=== PATIENT | male | born 2000 | race Caucasian/White ===

== ENCOUNTER 2023-02-21 16:40 | Inpatient (IN) | payer OTHER ==
--- NOTE | 2023-02-21 17:08 | ED ---
Recheck HPI - General Chief Complaint: Shortness of Breath Stated Complaint: IMER Time Seen by Provider: 02/21/23 17:08 Source: patient, RN notes reviewed, old records reviewed, Caregiver Mode of arrival: ambulatory Limitations: no limitations - History of Present Illness Initial Comments: This is a 22-year-old male to the emergency department for evaluation patient resents today for evaluation of chest pain nontraumatic in nature. Patient did have outpatient x-ray allegedly showing pneumothorax of the left lung. Patient states his symptoms began when he was taking the dog and he then felt felt sharp pain in his chest. This been going on for about a day with some shortness of breath as well MD Complaint: other (Patient has pneumothorax. History) Returns Today for: persistent/worsening pain related to initial visit Symptoms Since Prior Visit: worsening pain Associated Symptoms: chest pain, shortness of breath Treatments Prior to Arrival: other (0) - Related Data Home Medications Medication Instructions Recorded Confirmed No Known Home Medications 02/21/23 02/21/23 Allergies Allergy/AdvReac Type Severity Reaction Status Date / Time No Known Allergies Allergy Verified 02/21/23 17:47 Review of Systems ROS Statement: Those systems with pertinent positive or pertinent negative responses have been documented in the HPI. ROS Other: All systems not noted in ROS Statement are negative. Past Medical History Additional Past Medical History / Comment(s): pneumothrorax History of Any Multi-Drug Resistant Organisms: None Reported Past Surgical History: Ear Surgery Past Psychological History: No Psychological Hx Reported Smoking Status: Vaper Past Alcohol Use History: None Reported Past Drug Use History: Marijuana General Exam Limitations: no limitations General appearance: alert, in no apparent distress, anxious Head exam: Present: atraumatic, normocephalic, normal inspection Eye exam: Present: normal appearance, PERRL, EOMI. Absent: scleral icterus, conjunctival injection, periorbital swelling ENT exam: Present: normal exam, mucous membranes moist Neck exam: Present: normal inspection. Absent: tenderness, meningismus, lymphadenopathy Respiratory exam: Present: decreased breath sounds (No breath sounds on the left). Absent: respiratory distress, wheezes, rales, rhonchi, stridor Cardiovascular Exam: Present: regular rate, normal rhythm, normal heart sounds. Absent: systolic murmur, diastolic murmur, rubs, gallop, clicks GI/Abdominal exam: Present: soft, normal bowel sounds. Absent: distended, tenderness, guarding, rebound, rigid Extremities exam: Present: normal inspection, full ROM, normal capillary refill. Absent: tenderness, pedal edema, joint swelling, calf tenderness Back exam: Present: normal inspection Neurological exam: Present: alert, oriented X3, CN II-XII intact Psychiatric exam: Present: normal affect, normal mood Skin exam: Present: warm, dry, intact, normal color. Absent: rash Course Vital Signs 02/21/23 02/21/23 02/21/23 16:59 17:39 19:27 Temperature 98.0 F Pulse Rate 79 76 82 Respiratory 20 20 18 Rate Blood Pressure 127/61 113/90 132/95 O2 Sat by Pulse 93 L 98 100 Oximetry - Reevaluation(s) Reevaluation #1: 02/21/23 17:13 Medical record is reviewed Reevaluation #2: 02/21/23 17:13 Patient symptoms are improved Reevaluation #3: 02/21/23 17:13 Patient informed results and questions answered Reevaluation #4: 02/21/23 17:13 Was pt. sent in by a medical professional or institution? @ -no Did you speak to anyone other than the patient for history? @ -no Did you review nursing and triage notes? @ -agree Were old charts reviewed? @ -no Differential Diagnosis? @ -prior EKG interpreted by me (3pts min.)? @ -yes X-rays interpreted by me (1pt min.)? @ -yes CT interpreted by me (1pt min.)? @ -no U/S interpreted by me (1pt. min.)? @ -no What testing was considered but not performed? (CT, X-rays, U/S, labs)? Why? @ -no What meds were considered but not given? Why? @ -no Did you discuss the management of the patient with other professionals? @ -no Did you reconcile home meds? @ -no Was smoking cessation discussed for >3mins.? @ -no Was critical care preformed (if so, how long)? @ -no Were there social determinants of health that impacted care today? How? (Homelessness, low income, unemployed, alcoholism, drug addiction, transportation, low edu. Level, literacy, decrease access to med. care, longterm, rehab)? @ -no Was there de-escalation of care discussed even if they declined? (Discuss DNR or withdrawal of care, Hospice)? @ -no What co-morbidities impacted this encounter? (DM, HTN, Smoking, COPD, CAD, Cancer, CVA, Hep., AIDS, mental health diagnosis, sleep apnea, morbid obesity)? @ -none Was patient admitted / discharged? @ -22 mailed ER with spontaneous left-sided pneumothorax treated with poor event, chest tube. Patient will be admitted for monitoring Admitted Undiagnosed new problem with uncertain prognosis? @ -no Drug Therapy requiring intensive monitoring for toxicity (Heparin, Nitro, Insulin, Cardizem)? @ -no Were any procedures done? @ -no Diagnosis/symptom? @ -Spontaneous pneumothorax left Acute, or Chronic, or Acute on Chronic? @ -no Uncomplicated (without systemic symptoms) or Complicated (systemic symptoms)? @ -uncomplicated Side effects of treatment? @ -no Exacerbation, Progression, or Severe Exacerbation] @ -no Poses a threat to life or bodily function? @ -Yes was cardiovascular collapse and hypoxia Reevaluation #5: 02/21/23 17:13 Differential Chest Pain: Stable Angina, Unstable Angina, STEMI, NSTEMI Aortic Dissection, Pneumothorax, Musculoskeletal, Esophageal Spasm GERD, Cholecystitis, Pancreatitis, Zoster, this is not meant to be an all-inclusive list. - Consultations Consultation #1: Spoke with sound who agrees to admit the patient Procedures - Chest Tube Insertion Consent Obtained: verbal consent Side of Procedure: left Indication: Pneumothorax (Spontaneous) Placed on monitor/pulse oximetry: Yes Site Prep: Povidone-Iodine Local Anesthesia: Lidocaine 2%, With Epi Insertion Site: Midaxillary Scalpel: #11 Returns: Air Sutured in Place: No (Tape, Darvocet) Attached to Suction: Yes (After initial x-ray showed improvement, to suction showing 100%) Type of Suction: Air Repeat X-ray Results: Lung Inflated Patient Tolerated Procedure: well Complications: Other (None) Medical Decision Making - Medical Decision Making 22 male DF for evaluation spontaneous left-sided pneumothorax improve with or event. Patient feels improved will admit for monitoring - Lab Data Result diagrams: 02/21/23 17:47 02/21/23 17:47 Lab Results 02/21/23 02/21/23 02/21/23 Range/Units 17:47 17:47 17:47 WBC 8.9 (4.0-11.0) k/uL RBC 5.37 (4.30-5.90) m/uL Hgb 16.8 (13.0-17.5) gm/dL Hct 49.3 (39.0-53.0) % MCV 91.7 (80.0-100.0) fL MCH 31.3 (25.0-35.0) pg MCHC 34.2 (31.0-37.0) g/dL RDW 11.9 (11.5-15.5) % Plt Count 263 (150-450) k/uL MPV 7.8 Neutrophils % 75 % Lymphocytes % 17 % Monocytes % 6 % Eosinophils % 0 % Basophils % 0 % Neutrophils # 6.7 (1.3-7.7) k/uL Lymphocytes # 1.5 (1.0-4.8) k/uL Monocytes # 0.5 (0-1.0) k/uL Eosinophils # 0.0 (0-0.7) k/uL Basophils # 0.0 (0-0.2) k/uL PT 11.1 (9.0-12.0) sec INR 1.1 (<1.2) APTT 25.3 (22.0-30.0) sec Sodium 141 (137-145) mmol/L Potassium 4.1 (3.5-5.1) mmol/L Chloride 102 (98-107) mmol/L Carbon Dioxide 23 (22-30) mmol/L Anion Gap 16 mmol/L BUN 11 (9-20) mg/dL Creatinine 0.97 (0.66-1.25) mg/dL Est GFR (CKD-EPI)AfAm >90 (>60 ml/min/1.73 sqM) Est GFR (CKD-EPI)NonAf >90 (>60 ml/min/1.73 sqM) Glucose 81 (74-99) mg/dL Calcium 10.6 H (8.4-10.2) mg/dL Phosphorus 2.9 (2.5-4.5) mg/dL Magnesium 2.1 (1.6-2.3) mg/dL Total Bilirubin 1.1 (0.2-1.3) mg/dL AST 28 (17-59) U/L ALT 20 (4-49) U/L Alkaline Phosphatase 92 (38-126) U/L Total Protein 8.8 H (6.3-8.2) g/dL Albumin 5.5 H (3.5-5.0) g/dL - Radiology Data Radiology results: report reviewed (Chest x-ray initially shows significant pneumothorax, repeat shows positive treatment and chest tube for event), image reviewed Disposition Clinical Impression: Acute pneumothorax, Chest pain, Spontaneous pneumothorax Disposition: ADMITTED IP TO THIS [facility] Condition: Good Is patient prescribed a controlled substance at d/c from ED?: No Referrals: Bj Abdalla DO [Primary Care Provider] - 1-2 days Time of Disposition: 20:00
--- NOTE | 2023-02-21 17:35 | XR ---
EXAMINATION TYPE: XR chest 1V portable DATE OF EXAM: 02/21/2023 5:17 PM COMPARISON: Chest radiographs from 02/21/2023. TECHNIQUE: XR chest 1V portable Frontal view of the chest. CLINICAL INDICATION:Male, 22 years old with history of cp; FINDINGS: Lungs/Pleura: There is a large left pneumothorax with associated atelectasis. Thank similar to radiog raph from 2 hours earlier. Pulmonary vascularity: Unremarkable. Heart/mediastinum: Cardiomediastinal silhouette is unremarkable. Musculoskeletal: No acute osseous pathology. IMPRESSION: Large left pneumothorax similar to prior from 2 hours earlier.
[2023-02-21] MEDS ORDERED: SODIUM CHLORIDE 0.9% 1,000 ML IV STA (17:45)
[2023-02-21 18:06] LABS: Basophils % (A) 0 %; Eosinophils % (A) 0 %; HCT 49.3 % (39.0-53.0); HGB 16.8 gm/dL (13.0-17.5); Lymphocytes # (A) 1.5 k/uL (1.0-4.8); Lymphocytes % (A) 17 %; MCH 31.3 pg (25.0-35.0); MCHC 34.2 g/dL (31.0-37.0); MCV 91.7 fL (80.0-100.0); Mean Platelet Volume 7.8; Monocytes # (A) 0.5 k/uL (0-1.0); Monocytes % (A) 6 %; Neutrophils # (A) 6.7 k/uL (1.3-7.7); Neutrophils % (A) 75 %; Platelet Count 263 k/uL (150-450); RBC 5.37 m/uL (4.30-5.90); RDW 11.9 % (11.5-15.5); WBC 8.9 k/uL (4.0-11.0)
[2023-02-21 18:11] LABS: INR 1.1 (<1.2); Partial Thromboplastin Time 25.3 sec (22.0-30.0); Prothrombin Time 11.1 sec (9.0-12.0)
[2023-02-21 18:17] LABS: ALT 20 U/L (4-49); AST 28 U/L (17-59); African American GFR (CKD) >90 (>60 ml/min/1.73 sqM); Albumin 5.5 g/dL (3.5-5.0); Alkaline Phosphatase 92 U/L (38-126); Anion Gap 16 mmol/L; Blood Urea Nitrogen 11 mg/dL (9-20); Calcium 10.6 mg/dL (8.4-10.2); Carbon Dioxide 23 mmol/L (22-30); Chloride 102 mmol/L (98-107); Glucose 81 mg/dL (74-99); Magnesium 2.1 mg/dL (1.6-2.3); Non-African American GFR(CKD) >90 (>60 ml/min/1.73 sqM); Phosphorus 2.9 mg/dL (2.5-4.5); Potassium 4.1 mmol/L (3.5-5.1); Sodium 141 mmol/L (137-145); Total Bilirubin 1.1 mg/dL (0.2-1.3); Total Protein 8.8 g/dL (6.3-8.2)
--- NOTE | 2023-02-21 18:25 | XR ---
EXAMINATION TYPE: XR chest 1V portable DATE OF EXAM: 02/21/2023 6:13 PM COMPARISON: Chest radiographs from same day. TECHNIQUE: XR chest 1V portable Frontal view of the chest. CLINICAL INDICATION:Male, 22 years old with history of cp; FINDINGS: Lungs/Pleura: There is no evidence of pleural effusion, focal consolidation, or pneumothorax. Pulmonary vascularity: Unremarkable. Heart/mediastinum: Cardiomediastinal silhouette is unremarkable. Musculoskeletal: No acute osseous pathology. Other findings: None Lines/Tubes: Interval placement of chest tube with persistent large pneumothorax. IMPRESSION: Persistent large pneumothorax with chest tube in place. The pneumothorax is not significantly changed .
--- NOTE | 2023-02-21 18:31 | XR ---
EXAMINATION TYPE: XR chest 1V portable DATE OF EXAM: 02/21/2023 6:24 PM COMPARISON: Chest radiographs from same day. TECHNIQUE: XR chest 1V portable Frontal view of the chest. CLINICAL INDICATION:Male, 22 years old with history of cp; FINDINGS: Lungs/Pleura: Improved aeration of the left lung. There is no evidence of pleural effusion, focal con solidation. Pulmonary vascularity: Unremarkable. Heart/mediastinum: Cardiomediastinal silhouette is unremarkable. Musculoskeletal: No acute osseous pathology. Other findings: None Lines/Tubes: Left thoracotomy tube in place. IMPRESSION: Improved aeration of the left lung no appreciable pneumothorax on this exam.
[2023-02-21] MEDS ORDERED: ONDANSETRON 4 MG/2 ML VIAL IVP PRN (20:11)
[2023-02-21] MEDS ORDERED: NALOXONE 0.4 MG/ML 1 ML VIAL IV PRN (20:11)
[2023-02-21] MEDS ORDERED: SODIUM CHLORIDE 0.9% 1,000 ML IV SCH (20:15)
[2023-02-21] MEDS: MORPHINE SULFATE 4 MG/ML SYRINGE IV PRN ×2 (20:23→23:42)
--- NOTE | 2023-02-21 22:25 | P.HPIM ---
History of Present Illness H&P Date: 02/21/23 The patient is a 22-year-old male with a PMH of vape use who presents to the emergency room for new onset pneumothorax. The patient reports that he was in his usual state of health until yesterday afternoon when he was attempting to nut picker his dog chain when he suddenly developed shortness of breath with mild left-sided chest tightness. The symptoms gradually improved and he did not think much of it. Upon waking up this morning, he noticed that the shortness of breath persisted, which prompted him to go to his PCP, where chest x-ray was performed and revealed a left-sided pneumothorax. He denies any personal or family history of pneumothorax. Denies any recent trauma or new exercise re gimens. Denies experiencing fever, chills, cough, nausea, vomiting, abdominal pain, diarrhea. The patient underwent a left-sided thoracentesis placement in the emergency room. He reports that his breathing has essentially normalized and he only reports mild soreness at the site of the thoravent placement at the time of interview. Chest x-ray in the emergency room revealed a large left-sided thorax. Subsequent x-rays revealed improved aeration of the left lung with no appreciable pneumothorax noted. Laboratory evaluation in the emergency room was reviewed and was remarkable for calcium 10.6 and albumin 5.5. ED documentation reviewed and case discussed with ED provider. Review of systems: Pertinent positives and negatives as discussed in HPI, a complete review of systems was performed and all other systems are negative. Physical examination: Vital signs reviewed General: non toxic, no distress, appears at stated age, normal weight Derm: no unusual rashes/lesions, warm Head: atraumatic, normocephalic, symmetric Eyes: EOMI, no lid lag, anicteric sclera, pupils equal round reactive to light ENT: Nose and ears atraumatic Neck: No cervical lymphadenopathy, trachea midline, supple Mouth: no lip lesion, mucus membranes moist Cardiovascular: S1S2 reg, no murmur, positive dorsalis pedis pulse bilateral, no edema Lungs: CTA bilateral, no rhonchi, no rales, no accessory muscle use, left-sided thoravent in place Abdominal: soft, nontender to palpation, no guarding Ext: muscle strength 5 out of 5 in all 4 extremities grossly, no gross muscle atrophy, no contractures, Neuro: CN II-XI grossly intact, no gross focal neuro deficits Psych: Alert, oriented, appropriate affect Assessment: Spontaneous left-sided pneumothorax, nontraumatic Imaging: Chest x-ray in the emergency room revealed a large left-sided thorax. Subsequent x-rays revealed improved aeration of the left lung with no appreciable pneumothorax noted. Data Review: Laboratory evaluation in the emergency room was reviewed and was remarkable for calcium 10.6 and albumin 5.5. Plan: Strongly urged patient on importance of cessation from tobacco or vape use DVT prophylaxis: Lovenox Subq The patient is admitted with an anticipated less than 2 midnight stay for evaluation of pneumothorax spontaneous CODE STATUS: Full Code Discussed with: Patient Anticipated discharge place: Home Past Medical History Additional Past Medical History / Comment(s): pneumothrorax History of Any Multi-Drug Resistant Organisms: None Reported Past Surgical History: Ear Surgery Past Psychological History: No Psychological Hx Reported Smoking Status: Vaper Past Alcohol Use History: None Reported Past Drug Use History: Marijuana - Past Family History Father Family Medical History: Diabetes Mellitus Medications and Allergies Home Medications Medication Instructions Recorded Confirmed Type No Known Home Medications 02/21/23 02/21/23 History Allergies Allergy/AdvReac Type Severity Reaction Status Date / Time No Known Allergies Allergy Verified 02/21/23 17:47 Physical Exam Vitals: Vital Signs Temp Pulse Resp BP BP Pulse Ox 02/21/23 21:52 97.8 F 16 149/87 99 02/21/23 20:30 68 18 145/70 02/21/23 19:27 82 18 132/95 100 02/21/23 17:39 76 20 113/90 98 02/21/23 16:59 98.0 F 79 20 127/61 93 L Intake and Output 02/21/23 02/21/23 02/21/23 06:59 14:59 22:59 Other: Weight 72.575 kg Results CBC & Chem 7: 02/21/23 17:47 02/21/23 17:47 Labs: Abnormal Lab Results - Last 24 Hours (Table) 02/21/23 Range/Units 17:47 Calcium 10.6 H (8.4-10.2) mg/dL Total Protein 8.8 H (6.3-8.2) g/dL Albumin 5.5 H (3.5-5.0) g/dL
[2023-02-22] MEDS: MORPHINE SULFATE 4 MG/ML SYRINGE IV PRN ×3 (03:49→12:18)
[2023-02-22 07:37] VITALS: RESP 16
--- NOTE | 2023-02-22 12:58 | P.GSCN ---
History of Present Illness Consult date: 02/22/23 Reason for Consult: Acute spontaneous left pneumothorax Requesting physician: Gladis Gold History of present illness: This is a 22-year-old gentleman who follows on an outpatient basis for his primary care service with Dr. Bj Rudolph. He is no significant past medical history except for Vaping and smoking marijuana does about 5-6 bongs per day. He presented to the emergency department here at [facility] after apparently having a chest x-ray done on an outpatient basis showing a spontaneous left pneumothorax. He reports he was going to take his dog's for a walk yesterday and when he went to put the leash on the dog he was bending down and felt a pain or pulling to his left upper chest and throughout the day he became short of breath which made him concerned enough to seek medical care. He denies any recent trauma, hemoptysis, hematemesis, cough, fever, chills, headache, lightheadedness, palpitations, presyncope or syncope. Due to the patient's symptoms and findings of a spontaneous pneumothorax as an outpatient a chest x-ray was completed here at [facility] which showed a large left pneumothorax. Subsequently, due to the findings of left pneumothorax a Thoravent was placed by the emergency room physician. A repeat chest x-ray shows improved aeration of the left lung with no appreciable pneumothorax. The left chest Thoravent remains in place and up upon evaluation this morning is capped and still is showing a positive air leak. Due to the patient's s pontaneous left pneumothorax and placement of a left chest Thoravent Dr. Hal Cueva from cardiothoracic surgery was consulted for further evaluation and treatment recommendations regarding his pneumothorax. Review of Systems A 14 point review of systems was completed was negative as mentioned in the HPI. Past Medical History Additional Past Medical History / Comment(s): Left spontaneous pneumothrorax 02/21/2023 History of Any Multi-Drug Resistant Organisms: None Reported Past Surgical History: Ear Surgery Additional Past Surgical History / Comment(s): Has a history of tubes in his ears as a child Past Anesthesia/Blood Transfusion Reactions: No Reported Reaction Past Psychological History: No Psychological Hx Reported Smoking Status: Vaper (Daily) Past Alcohol Use History: None Reported Past Drug Use History: Marijuana (5-6 bongs per day) - Past Family History Father Family Medical History: Diabetes Mellitus Medications and Allergies Home Medications Medication Instructions Recorded Confirmed Type No Known Home Medications 02/21/23 02/21/23 History Allergies Allergy/AdvReac Type Severity Reaction Status Date / Time No Known Allergies Allergy Verified 02/21/23 17:47 Surgical - Exam Vital Signs Temp Pulse Resp BP Pulse Ox 98.0 F 79 20 127/61 93 L 02/21/23 16:59 02/21/23 16:59 02/21/23 16:59 02/21/23 16:59 02/21/23 16:59 - General well developed, well nourished, no distress, moderate pain (Left Thoravent insertion site) - Eyes PERRL, normal ocular movement, no pale, no icteric - ENT normal pinna, normal nares, normal mucosa, no hearing loss, no congestion - Neck no masses, no bruits, trachea midline, no venous distension - Respiratory Lungs essentially clear throughout. Respirations are symmetrical and nonlabored. No wheezes, rhonchi or crackles. - Cardiovascular Regular rhythm and rate. S1 and S2 present, negative for S3, gallop or murmur. Peripheral pulses palpable. - Abdomen Abdomen is soft, nontender and nondistended. Active bowel sounds present in all 4 abdominal quadrants. No guarding or rigidity. - Genitourinary Deferred - Rectum Deferred - Integumentary Tattooed to his left forearm. Skin is warm and dry. No clubbing or cyanosis is present. no rash, no growths, no abnormal pigmentation - Neurologic No focal deficits. normal coordination, normal sensation - Musculoskeletal Moves all 4 extremities with equal strength bilateral. normal gait, normal posture - Psychiatric oriented to time, oriented to person, oriented to place, speech is normal, memory intact Results - Labs 02/21/23 17:47 02/21/23 17:47 Abnormal Lab Results - Last 24 Hours (Table) 02/21/23 Range/Units 17:47 Calcium 10.6 H (8.4-10.2) mg/dL Total Protein 8.8 H (6.3-8.2) g/dL Albumin 5.5 H (3.5-5.0) g/dL Diabetes panel 02/21/23 Range/Units 17:47 Sodium 141 (137-145) mmol/L Potassium 4.1 (3.5-5.1) mmol/L Chloride 102 (98-107) mmol/L Carbon Dioxide 23 (22-30) mmol/L BUN 11 (9-20) mg/dL Creatinine 0.97 (0.66-1.25) mg/dL Glucose 81 (74-99) mg/dL Calcium 10.6 H (8.4-10.2) mg/dL AST 28 (17-59) U/L ALT 20 (4-49) U/L Alkaline Phosphatase 92 (38-126) U/L Total Protein 8.8 H (6.3-8.2) g/dL Albumin 5.5 H (3.5-5.0) g/dL Calcium panel 02/21/23 Range/Units 17:47 Calcium 10.6 H (8.4-10.2) mg/dL Phosphorus 2.9 (2.5-4.5) mg/dL Albumin 5.5 H (3.5-5.0) g/dL Pituitary panel 02/21/23 Range/Units 17:47 Sodium 141 (137-145) mmol/L Potassium 4.1 (3.5-5.1) mmol/L Chloride 102 (98-107) mmol/L Carbon Dioxide 23 (22-30) mmol/L BUN 11 (9-20) mg/dL Creatinine 0.97 (0.66-1.25) mg/dL Glucose 81 (74-99) mg/dL Calcium 10.6 H (8.4-10.2) mg/dL Adrenal panel 02/21/23 Range/Units 17:47 Sodium 141 (137-145) mmol/L Potassium 4.1 (3.5-5.1) mmol/L Chloride 102 (98-107) mmol/L Carbon Dioxide 23 (22-30) mmol/L BUN 11 (9-20) mg/dL Creatinine 0.97 (0.66-1.25) mg/dL Glucose 81 (74-99) mg/dL Calcium 10.6 H (8.4-10.2) mg/dL Total Bilirubin 1.1 (0.2-1.3) mg/dL AST 28 (17-59) U/L ALT 20 (4-49) U/L Alkaline Phosphatase 92 (38-126) U/L Total Protein 8.8 H (6.3-8.2) g/dL Albumin 5.5 H (3.5-5.0) g/dL - Imaging Chest x-ray: report reviewed, image reviewed Assessment and Plan Assessment: Spontaneous left pneumothorax, nontraumatic Chronic ongoing Vaping Daily marijuana use Plan: The patient was seen and examined at his bedside on the fourth floor medical surgical unit in conjunction with Dr. Hal Cueva. His chart and diagnostics were reviewed. Dr. Cueva discussed with the patient in detail the importance of risk modification including vaping and smoking marijuana cessation. Per the cardiothoracic surgery standpoint neurosurgical intervention is warranted at this time. Keep the left chest Thoravent in place and if okay with primary care and pulmonary services he can be discharged home with the Thoravent in place and follow-up as an outpatient in the office on 02/25/2023 with a repeat chest x-ray. If the Thoravent is not leaking on Saturday and the chest x-ray shows no evidence of pneumothorax his left chest Thoravent could be removed. Pain control per primary care service recommendations. He will be given a prescription for a follow-up chest x-ray this 02/25/2023. Medical management and pulmonary management per primary care and pulmonary/critical care services. More recommendations to follow based on patient's clinical course. Thank you Dr. Gold for this consult and we look for to working with you in the care of this patient. I have personally seen and examined the patient, performed the documentation and the assessment and plan as written. 30 minutes spent on the visit . Jonathan DYE
[2023-02-22] MEDS ORDERED: KETOROLAC 15 MG/ML 1 ML VIAL IVP SCH (13:00)
--- NOTE | 2023-02-22 13:48 | P.DS ---
Providers Date of admission: 02/21/23 20:12 Expected date of discharge: 02/22/23 Attending physician: Rossi Masterson MD Consults: 02/21/23 20:11 Consult Physician Routine Consulting Provider: Gladis Gold Consult Reason/Comments: ptx Do you want consulting provider notified?: Yes 02/22/23 07:45 Consult Physician Routine Consulting Provider: Hal Cueva Consult Reason/Comments: ptx Do you want consulting provider notified?: Yes Primary care physician: [facility] Course: The patient is a 22-year-old male with a PMH of vape use who presents to the emergency room for new onset pneumothorax. 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 The symptoms gradually improved and he did not think much of it. Upon waking up this morning, he noticed that the shortness of breath persisted, which prompted him to go to his PCP, where chest x-ray was performed and revealed a left-sided pneumothorax. He denies any personal or family history of pneumothorax. Denies any recent trauma or new exercise regimens. Denies experiencing fever, chills, cough, nausea, vomiting, abdominal pain, diarrhea. The patient underwent a left-sided thoracentesis placement in the emergency room. He reports that his breathing has essentially normalized and he only reports mild soreness at the site of the thoravent placement. Repeat CXR showed improvement in areation. Case was discussed with Bowser SENIOR SOFTWARE QUALITY ENGINEER with Cardiothoracic surgery who recommended that the patient be discharged, obtain CXR on Saturday and follow up in the outpatient setting on 02/25 for removal of thoravent. Patient was seen and examined this morning. No acute events overnight. Patient reports no shortness of breath. He reports mild chest discomfort at the site of thoravent. Pertinent studies include chest x-ray. General: non toxic, no distress, appears at stated age, normal weight Derm: no unusual rashes/lesions, warm Head: atraumatic, normocephalic, symmetric Eyes: EOMI, no lid lag, anicteric sclera ENT: Nose and ears atraumatic Neck: No cervical lymphadenopathy, trachea midline, supple Cardiovascular: S1S2 reg, no murmur, no edema Lungs: CTA bilateral, no rhonchi, no rales, no accessory muscle use, left-sided thoravent in place Ext: muscle strength 5 out of 5 in all 4 extremities grossly, no gross muscle atrophy, no contractures, Neuro: no gross focal neuro deficits Psych: Alert, oriented, appropriate affect Discharge diagnosis: Spontaneous left-sided pneumothorax, nontraumatic This complex discharge took 35 minutes to complete. Patient Condition at Discharge: Stable Plan - Discharge Summary Discharge Rx Participant: No New Discharge Prescriptions: New Ketorolac [Toradol] 10 mg PO Q6HR PRN #20 tab PRN Reason: Pain Discharge Medication List Ketorolac [Toradol] 10 mg PO Q6HR PRN #20 tab 02/22/23 [Rx] Follow up Appointment(s)/Referral(s): Kenji Bowser NPC [Nurse Practitioner] - 02/25/23 11:00 am (Please follow-up in the office at [address] [place] [address] [address], [place] [address]. The office phone number is [phone]. Please obtain a chest x-ray prior to following up in the office.) Bj Abdalla DO [Primary Care Provider] - 1-2 days Ambulatory/Diagnostic Orders: XR chest 2V [RAD.AMB] Time Frame: 02/24/23, Facility: [facility], Location: [facility] Discharge Disposition: HOME SELF-CARE
[2023-02-22 14:35] VITALS: BP 131/68; PULSE 75; TEMP 98.6
--- NOTE | 2023-02-22 15:43 | P.CNPUL ---
History of Present Illness Consult date: 02/22/23 Requesting physician: Elie Giles Reason for consult: dyspnea, chest pain, pneumothorax, abnormal CXR/CT Chief complaint: Left-sided chest pain History of present illness: This is a very pleasant 22-year-old male patient with no significant past medical history. He is known to vape. He is known to smoke marijuana. He presented to the emergency room yesterday after developing a sharp pain in his left chest with ongoing shortness of breath throughout the day. He had been bending over putting his dog on a lead to let him outside earlier in the morning. He felt a pull in the left chest that continued to become more uncomfortable. He was seen in the [facility] where a chest x-ray revealed a large left-sided pneumothorax and he was told to report to the emergency room. Chest x-ray here again revealed a large left pneumothorax with associated atelectasis. He had a Thora vent placed and follow-up chest x-ray revealed improved aeration of the left lung with no appreciable pneumothorax. White count 8.9. Hemoglobin 16.8. Platelets 263. INR 1.1. Sodium 141. Potassium 4.1. Bicarb 23. BUN 11. Creatinine 0.97. AST 28. ALT 20. He is seen today in consultation on the regular medical floor. He is awake and alert in no acute distress. He is maintaining good O2 saturations in the 90s on room air. Thoravent assessment continues to show a positive leak. Cardio thoracic services are following. Review of Systems REVIEW OF SYSTEMS: CONSTITUTIONAL: Denies any recent significant weight loss or weight gain. EYES: Denies change in vision. EARS, NOSE, MOUTH, THROAT: Denies headaches, denies sore throat. CARDIOVASCULAR: Positive for left-sided chest pain, no palpitations or syncopal episodes. RESPIRATORY: Positive for shortness of breath, no cough, congestion or hemoptysis. GASTROINTESTINAL: Denies change in appetite, denies abdominal pain GENITOURINARY: Denies hematuria, denies infections. MUSKULOSKELETAL: Denies pain, denies swelling. INTEGUMENTARY: Denies rash, denies eczema. NEUROLOGICAL: Denies recent memory loss, no recent seizure activity. PSYCHIATRIC: Denies anxiety, denies depression. HEMATOLOGIC/LYMPHATIC: Denies anemia, denies enlarged lymph nodes. Past Medical History Additional Past Medical History / Comment(s): Left spontaneous pneumothrorax 02/21/2023 History of Any Multi-Drug Resistant Organisms: None Reported Past Surgical History: Ear Surgery Additional Past Surgical History / Comment(s): Has a history of tubes in his ears as a child Past Anesthesia/Blood Transfusion Reactions: No Reported Reaction Past Psychological History: No Psychological Hx Reported Smoking Status: Vaper (Daily) Past Alcohol Use History: None Reported Past Drug Use History: Marijuana (5-6 bongs per day) - Past Family History Father Family Medical History: Diabetes Mellitus Medications and Allergies Home Medications Medication Instructions Recorded Confirmed Type Ketorolac [Toradol] 10 mg PO Q6HR PRN #20 tab 02/22/23 Rx Allergies Allergy/AdvReac Type Severity Reaction Status Date / Time No Known Allergies Allergy Verified 02/21/23 17:47 Physical Exam Vitals: Vital Signs Temp Pulse Pulse Resp BP BP Pulse Ox 02/22/23 14:00 98.6 F 75 16 131/68 96 02/22/23 08:30 52 L 16 02/22/23 07:36 97.8 F 52 L 16 119/70 100 02/22/23 01:57 98.1 F 57 L 18 121/63 99 02/21/23 21:52 97.8 F 16 149/87 99 02/21/23 20:30 68 18 145/70 02/21/23 19:27 82 18 132/95 100 02/21/23 17:39 76 20 113/90 98 02/21/23 16:59 98.0 F 79 20 127/61 93 L Intake and Output 02/22/23 02/22/23 02/22/23 06:59 14:59 22:59 Other: # Voids 2 GENERAL EXAM: Alert, oriented, very pleasant 22-year-old male, on room air, fairly comfortable in no apparent distress. HEAD: Normocephalic. EYES: Normal reaction of pupils, equal size. NOSE: Clear with pink turbinates. THROAT: No erythema or exudates. NECK: No masses, no JVD. CHEST: No chest wall deformity. Left sided Thora-Vent catheter in place. Positive leak LUNGS: Equal air entry with no crackles, wheeze, rhonchi or dullness. CVS: S1 and S2 normal with no audible murmur, regular rhythm. ABDOMEN: No hepatosplenomegaly, normal bowel sounds, no guarding or rigidity. SPINE: No scoliosis or deformity SKIN: No rashes CENTRAL NERVOUS SYSTEM: No focal deficits, tone is normal in all 4 extremities. EXTREMITIES: There is no peripheral edema. No clubbing, no cyanosis. Peripheral pulses are intact. Results - Laboratory Findings CBC and BMP: 02/21/23 17:47 02/21/23 17:47 PT/INR, D-dimer PT 11.1 sec (9.0-12.0) 02/21/23 17:47 INR 1.1 (<1.2) 02/21/23 17:47 Abnormal lab findings: Abnormal Labs 02/21/23 17:47 Calcium 10.6 H Total Protein 8.8 H Albumin 5.5 H - Diagnostic Findings Chest x-ray: image reviewed Assessment and Plan Assessment: Spontaneous left-sided pneumothorax. Status post Thora-Vent placement 02/21/2023. Follow-up chest x-ray shows near complete expansion. History of vaping History of smoking marijuana utilizing 5-6 bongs per day Plan: The patient was seen and evaluated Chest x-ray, labs and medications reviewed Currently stable and on room air Thora vent still with positive leak, to remain in place Cleared for discharge from pulmonary and cardiothoracic services He will be following up with Dr. Cueva on 02/25/2023 with follow-up chest x-ray He is encouraged to return to the emergency room with any recurrent symptoms I have personally seen and examined the patient, performed the documentation and the assessment and plan as written. Number of minutes spent on the visit: 20.
== END 2023-02-22 15:03 | disposition home or self-care (01) | DRG 200 ==
LOC: EC 16:40 → 4SSUR 20:12
PROVIDERS: ADMIT Internal Medicine; ATTEND Internal Medicine
PROC: 0W9B30Z Drainage of Left Pleural Cavity with Drainage Device, Percutaneous Approach (ICD-10-PCS; principal; 2023-02-21)
DX: J93.83 Other pneumothorax (principal); J98.11 Atelectasis; J93.82 Other air leak; F17.290 Nicotine dependence, other tobacco product, uncomplicated
CPT/HCPCS: 36415; 71045; 80053; 83735; 84100; 85025; 85610; 85730; 93005; 96361; 96374; 99285

== ENCOUNTER → 2023-02-21 | Outpatient (CLI) | payer OTHER ==
--- NOTE | 2023-02-21 15:48 | XR ---
EXAMINATION TYPE: XR chest 2V DATE OF EXAM: 02/21/2023 COMPARISON: None HISTORY: 22-year-old male pain and shortness of breath. [id number] CHEST PAIN, SOB TECHNIQUE: Frontal and lateral views FINDINGS: The heart is normal size. There is a very large left-sided pneumothorax involving approximately 70% o f the left lung. Right lung and pleural space appear clear. No pleural effusion. There is slight asym metric depression of the left hemidiaphragm. IMPRESSION: Large left-sided pneumothorax, estimated at approximately 70%. There is slight asymmetric depression of the left hemidiaphragm that could represent early tension. Findings discussed with Vin GORDON er the phone at 3:45 PM. Patient is en route to [facility] ER.
== END | disposition home or self-care (01) ==
LOC: RADXRYALE 14:58
PROVIDERS: ATTEND Physician Assistant
DX: J93.9 Pneumothorax, unspecified (principal); R07.9 Chest pain, unspecified; R06.02 Shortness of breath
CPT/HCPCS: 71046

== ENCOUNTER → 2023-02-27 | Outpatient (CLI) | payer OTHER ==
--- NOTE | 2023-02-27 13:12 | XR ---
EXAMINATION TYPE: XR chest 2V DATE OF EXAM: 02/27/2023 COMPARISON: 02/27/2023 earlier exam INDICATION: Spontaneous pneumothorax TECHNIQUE: Frontal and lateral views of the chest are obtained. FINDINGS: The heart size is normal. The pulmonary vasculature is normal. The lungs are clear. No pneumothorax is evident post chest tube removal. IMPRESSION: 1. No acute pulmonary process. 2. No pneumothorax
--- NOTE | 2023-02-27 14:46 | XR ---
EXAMINATION TYPE: XR chest 2V DATE OF EXAM: 02/27/2023 COMPARISON: 02/21/2023 INDICATION: Spontaneous pneumothorax TECHNIQUE: Frontal and lateral views of the chest are obtained. FINDINGS: The heart size is normal. The pulmonary vasculature is normal. The lungs are clear. Left-sided chest tube is in place. No pneumothorax is evident on current image. IMPRESSION: 1. No acute pulmonary process. 2. No pneumothorax, left-sided chest tube is in position
== END | disposition home or self-care (01) ==
LOC: RADXRMAIN 11:46
PROVIDERS: ATTEND Nurse Practitioner Family
DX: J93.83 Other pneumothorax (principal)
CPT/HCPCS: 71046

== ENCOUNTER 2024-04-28 06:35 | Inpatient (IN) | payer OTHER ==
[2024-04-28] MEDS ORDERED: KETOROLAC 15 MG/ML 1 ML VIAL ONE ×2 (08:15→14:36)
[2024-04-28] MEDS ORDERED: LORazepam 2 MG/ML INJ ONE (09:14)
[2024-04-28] MEDS ORDERED: LIDOCAINE 1% INJ 10MG/ML (20 ML MDV) ONE (09:58)
[2024-04-28] MEDS ORDERED: MORPHINE SULFATE 4 MG/ML SYRINGE ONE (16:41)
[2024-04-29] MEDS ORDERED: KETOROLAC 15 MG/ML 1 ML VIAL ONE ×2 (01:58→20:01)
[2024-04-29] MEDS ORDERED: SUCCINYLCHOLINE CHLORIDE 200 MG/10 ML VIAL IV ONE (10:20)
[2024-04-29] MEDS ORDERED: GLYCOPYRROLATE 0.2 MG/ML 2 ML VIAL ONE (10:20)
[2024-04-29] MEDS ORDERED: LIDOCAINE 1%-EPI 1:100,000 20 ML VIAL ONE (10:20)
[2024-04-29] MEDS ORDERED: NEOSTIGMINE 1 MG/ML 10 ML VIAL ONE (10:20)
[2024-04-29] MEDS ORDERED: LACTATED RINGERS 1,000 ML BAG ONE (10:20)
[2024-04-29] MEDS ORDERED: KETAMINE HCL IN 0.9 % NACL 50 MG/5 ML SYRINGE ONE (10:20)
[2024-04-29] MEDS ORDERED: LIDOCAINE 1% INJ 10MG/ML (20 ML MDV) ONE (10:20)
[2024-04-29] MEDS ORDERED: MIDAZOLAM 2 MG/2 ML VIAL ONE (10:20)
[2024-04-29] MEDS ORDERED: BUPIVACAINE (PF) 0.25% 30 ML VIAL ONE (10:20)
[2024-04-29] MEDS ORDERED: fentaNYL (PF) 50 MCG/ML 2 ML AMP ONE (10:20)
[2024-04-29] MEDS ORDERED: ROCURONIUM 10 MG/ML (5 ML VIAL) IV ONE (10:20)
[2024-04-29] MEDS ORDERED: PROPOFOL 10 MG/ML 20 ML VIAL IV ONE (10:20)
[2024-04-29] MEDS ORDERED: HYDROmorphone 0.5 MG/0.5 ML SYRINGE ONE ×2 (12:40→14:23)
[2024-04-29] MEDS ORDERED: HYDROmorphone 1 MG/ML 1 ML SYRINGE ONE (16:23)
[2024-04-29] MEDS ORDERED: MORPHINE SULFATE 4 MG/ML SYRINGE ONE ×2 (17:37→21:59)
[2024-04-29] MEDS ORDERED: SODIUM CHLORIDE 0.9% 50 ML BAG ONE (20:00)
[2024-04-29] MEDS ORDERED: ceFAZolin 10 GM VIAL IVPB ONE (20:00)
[2024-04-29] MEDS ORDERED: HEPARIN SODIUM,PORCINE 5,000 UNIT/ML 1 ML VIAL ONE (20:01)
[2024-04-30] MEDS ORDERED: HYDROcodone/APAP 5-325MG 1 EACH TAB ONE ×2 (00:51→13:04)
[2024-04-30] MEDS ORDERED: MORPHINE SULFATE 4 MG/ML SYRINGE ONE ×5 (02:04→18:48)
[2024-04-30] MEDS ORDERED: KETOROLAC 15 MG/ML 1 ML VIAL ONE ×4 (03:00→20:32)
[2024-04-30] MEDS ORDERED: HEPARIN SODIUM,PORCINE 5,000 UNIT/ML 1 ML VIAL ONE (20:33)
[2024-05-01] MEDS ORDERED: MORPHINE SULFATE 4 MG/ML SYRINGE ONE ×5 (00:03→22:06)
[2024-05-01] MEDS ORDERED: KETOROLAC 15 MG/ML 1 ML VIAL ONE ×4 (03:40→19:48)
[2024-05-01] MEDS ORDERED: HEPARIN SODIUM,PORCINE 5,000 UNIT/ML 1 ML VIAL ONE ×2 (07:43→19:48)
[2024-05-02] MEDS ORDERED: KETOROLAC 15 MG/ML 1 ML VIAL ONE ×3 (02:02→12:34)
[2024-05-02] MEDS ORDERED: IPRATROPIUM-ALBUTEROL 3 ML NEB ONE (04:51)
[2024-05-02] MEDS ORDERED: HEPARIN SODIUM,PORCINE 5,000 UNIT/ML 1 ML VIAL ONE (08:27)
[2024-05-02] MEDS ORDERED: traMADol 50 MG TAB ONE (08:40)
--- NOTE | 2024-05-25 16:36 | CT ---
Patient Saul Pascal ID [id number] Order # EXAMINATION TYPE: CT chest wo con DATE OF EXAM: 04/28/2024 COMPARISON: Earlier plain films HISTORY: Pneumothorax CT DLP: 397.5 mGycm, Automated exposure control for dose reduction was used. CONTRAST: Performed injected with 0 mL of Isovue 300. TECHNIQUE: Axial images were obtained at 5 mm thick sections. Reconstructed images are reviewed on [employer] computer in the coronal plane. FINDINGS: Thyroid is poorly visualized. No suspicious lung nodules or focal infiltrates are present. There is a small 0.4 cm density posterio r right lung base. Series 205 image 67. Couple of small blebs are within the lung apices medially. Example image series 205 image 9. Some min imal pneumonitis change may be in the anterior left lung. Series 205 image 34 measuring 0.4 cm. Very minimal residual pneumothorax may be present at the left apex medially. Otherwise, the lung has reinflated. Serevent is present along the left lateral apex. No enlarged mediastinal or hilar adenopathy is evident. The ascending aorta diameter at the level o f the main pulmonary artery is 3.0 cm. The main pulmonary artery diameter at the bifurcation is 2.[address] sections are obtained through the upper abdomen. Abdomen is essentially unremarkable. IMPRESSION: 1. Couple small 0.4 cm densities at the anterior left midlung and right posterior costophrenic angle. 2. Previous pneumothorax has largely resolved. Thora vent remains present along the anterior left steve st.
--- NOTE | 2024-05-27 14:33 | XR ---
Patient Saul Pascal ID [id number]/[id number] Order # Procedure 1 VIEW CXR EXAMINATION TYPE: XR chest 1V DATE OF EXAM: 04/29/2024 12:43 PM CLINICAL INDICATION: Post VATS COMPARISON: THIS EXAM WAS READ DURING PACS DOWNTIME, NO PRIORS AVAILABLE. TECHNIQUE: XR chest 1V Frontal view of the chest. FINDINGS: Lungs/Pleura: There is no evidence of pleural effusion, focal consolidation, or pneumothorax. Pulmonary vascularity: Unremarkable. Heart/mediastinum: Cardiomediastinal silhouette is unremarkable. Musculoskeletal: No acute osseous pathology. Left thoracotomy tube with small pneumothorax. IMPRESSION: Left thoracotomy tube with small pneumothorax.
--- NOTE | 2024-05-28 08:41 | XR ---
Patient Saul Pascal ID [id number] [id number]/[id number] Order # EXAMINATION TYPE: XR chest 1V DATE OF EXAM: 04/29/2024 COMPARISON: 04/28/2024 INDICATION: Left side pneumothorax TECHNIQUE: Single frontal view of the chest is obtained. Edge of the right chest is excluded from the [id number]. FINDINGS: The heart size is normal. The pulmonary vasculature is normal. The lungs are clear. No sizable left pneumothorax identified. Thoravent remains present. IMPRESSION: 1. No acute pulmonary process. 2. No left pneumothorax is evident at this time. Thoravent remains present
--- NOTE | 2024-06-02 08:42 | XR ---
Patient Saul Pascal ID [id number] Order # EXAMINATION TYPE: XR chest 2V DATE OF EXAM: 04/30/2024 COMPARISON: Prior exams latest 04/30/2024 INDICATION: Left sided pneumothorax TECHNIQUE: Frontal and lateral views of the chest are obtained. FINDINGS: The heart size is normal. The pulmonary vasculature is normal. There is a moderate left-sided pneumothorax appears similar to comparison earlier in the day. Left-si ded chest tube is been adjusted and is directed more superiorly. IMPRESSION: 1. Left apical pneumothorax similar to prior exam. Left-sided chest tube slightly adjusted from prior .
--- NOTE | 2024-06-02 11:16 | XR ---
Site ID [facility] Saul Atwood ID [id number] Order # Procedure PCXR EXAMINATION TYPE: XR chest 1V DATE OF EXAM: 04/30/2024 9:20 AM CLINICAL INDICATION: Postop COMPARISON: THIS EXAM WAS READ DURING PACS DOWNTIME, NO PRIORS AVAILABLE. TECHNIQUE: XR chest 1V Frontal view of the chest. FINDINGS: Lungs/Pleura: There is no evidence of pleural effusion, focal consolidation, or pneumothorax. Pulmonary vascularity: Unremarkable. Heart/mediastinum: Cardiomediastinal silhouette is unremarkable. Musculoskeletal: No acute osseous pathology. Other findings: None Lines/Tubes: Left thoracotomy tube is present with evidence of small pneumothorax. IMPRESSION: Left thoracotomy tube is present with evidence of small pneumothorax.
--- NOTE | 2024-06-02 15:41 | XR ---
Patient Saul Pascal ID [id number] [id number]/26/[id number] Order # EXAMINATION TYPE: XR chest 2V DATE OF EXAM: 05/02/2024 COMPARISON: No comparison available on downtime PACS. INDICATION: Evaluation of left VATS TECHNIQUE: Frontal and lateral views of the chest are obtained. FINDINGS: The heart size is normal. The pulmonary vasculature is normal. The lungs are clear. Small left apical pneumothorax may be present. Left-sided chest tube remains pr esent. IMPRESSION: 1. Minimal left apical pneumothorax.
--- NOTE | 2024-06-02 15:49 | XR ---
Patient Saul Pascal ID [id number] [id number]/[id number] Order # EXAMINATION TYPE: XR chest 2V DATE OF EXAM: 05/01/2024 COMPARISON: 04/30/2024 INDICATION: Post VATS TECHNIQUE: Frontal and lateral views of the chest are obtained. FINDINGS: Left chest tube is present directed towards the apex. No residual pneumothorax evident at this time. The heart size is normal. The pulmonary vasculature is normal. The lungs are clear. IMPRESSION: 1. No left pneumothorax post VATS. Chest tube directed towards the apex.
--- NOTE | 2024-06-03 06:31 | XR ---
Patient Saul Pascal ID [id number] [id number] Order # EXAMINATION TYPE: XR chest 2V DATE OF EXAM: 05/02/2024 COMPARISON: Earlier exam same date INDICATION: Post chest tube removal TECHNIQUE: Frontal and lateral views of the chest are obtained. FINDINGS: The heart size is normal. The pulmonary vasculature is normal. The lungs are clear. There is a small left apical pneumothorax slightly increased in size following chest tube removal. IMPRESSION: 1. Mild increase in size of a small left apical pneumothorax.
--- NOTE | 2024-06-03 07:27 | XR ---
Patient Saul Pascal ID [id number] [id number]/[id number] Order # EXAMINATION TYPE: XR chest 1V DATE OF EXAM: 04/28/2024 COMPARISON: Exam earlier in the day INDICATION: Pneumothorax TECHNIQUE: Single frontal view of the chest is obtained. FINDINGS: The heart size is normal. The pulmonary vasculature is normal. There is placement of the Thora vent in the left upper lung field. Pneumothorax has significantly dim inished in size with small residual at the left apex. IMPRESSION: 1. Diminished size of small residual left apical pneumothorax post thora vent placement
--- NOTE | 2024-06-03 07:31 | XR ---
Patient Saul Pascal ID [id number] Order # EXAMINATION TYPE: XR chest 2V DATE OF EXAM: 04/28/2024 COMPARISON: No comparisons available on PACS INDICATION: Pain TECHNIQUE: Frontal and lateral views of the chest are obtained. FINDINGS: The heart size is normal. The pulmonary vasculature is normal. There is a moderately large left-sided pneumothorax. Report was called to emergency room by Dr. Faizan acosta, ER was aware of the findings. IMPRESSION: 1. Moderately large left pneumothorax.
--- NOTE | 2024-06-11 14:40 | OP ---
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 PROCEDURES PERFORMED: 1. Thoracoscopy. 2. Apical bullectomy from the left upper lobe. 3. Mechanical pleurodesis. 4. Single-level intercostal nerve block. ANESTHESIA: General by dual-lumen endotracheal tube anesthesia with bronchoscopic confirmation. VETERINARY ATTENDANT: OR staff, certified novell administrator. ESTIMATED BLOOD LOSS: Less than 25 mL. SPECIMEN: Left apical bullae. COMPLICATIONS: None. INDICATIONS: This is a 23-year-old gentleman with a known history of previous spontaneous left pneumothorax at which time he underwent a small drain in the emergency department and was admitted for observation. He was found to seal his air leak and the tube was removed and he was discharged home, and at the previous visit, he was consulted on by Dr. Hal Cueva. He recently had a similar feeling while at rest similar to his previous pneumothorax and with that presented to the emergency department with some shortness of breath and discomfort on the left side. He was found to have 50% pneumothorax and had a Thora-Vent placed. This resolved his pneumothorax and he is here today for repair of bullae that were found on the CT scan of the chest in the left upper lobe. DESCRIPTION OF PROCEDURE: The patient was brought to the operating room after appropriate consent was obtained where he was prepped and draped in sterile fashion in right lateral decubitus position with the left side up after induction of general by dual-lumen endotracheal tube anesthesia with bronchoscopic guidance. We then observed a time-out where by the patient, the procedure, the side, the site and antibiotic delivery were all confirmed prior to the incision. Additionally, we reviewed the CT scan at an outside computer prior to surgery as we were unable to be view the scan in the room at the time of the surgery. We then proceeded to inject the patient in his 9th interspace and used the mid incision for placement of our 5 mm trocar. Once that was in place, we were able to view inside of the chest and there was no need for insufflation. The lung was filling nicely with no evidence of COPD. We then proceeded to, under direct vision, place the second counter incision site in the same rib space after infiltration of local anesthetic under direct vision of the scope for the rib block. We then proceeded to place our 5 mm trocar in the posterior most port and used that to visualize insertion of the anterior most counter incision site which also was similarly anesthetized. We then made an incision with 15-blade knife and gained access through the chest wall and chest cavity to the anterior most site and after that was completed, we placed a Sky clamp through the anterior most site and used that to manipulate the lung and inspect it for any bullae. We found normal-appearing lung except for the apex that showed bullae similar to the appearance on CT scan. We were then able to place a 5 mm grasper through the central most incision site and grasped the apical bullae. We then brought a 60 mm Blue stapling load in and stapled across the apex excising the bullae and completed the staple line with a second firing of another 60 Blue load. There was one small injury created with retraction and that was also over-stapled with a 60 mm Blue load. We then removed the specimen and handed it for permanent pathology. The patient tolerated that well and we also removed the small piece of lung with the retraction injury after stapling it off. We then used a Bovie scratch pad to abrade the upper third to half of the chest cavity thoroughly, and once that was accomplished we placed a 24-Bulgarian straight thoracic chest tube anteriorly and apically. We then proceeded to secure it in place with 0 Ethibond suture and once that was complete, we re-inflated the lung under direct vision of the scope. Once that was complete, we proceeded to remove the camera and closed the incisions deep with 2-0 Vicryl suture and the skin with 4-0 Monocryl. We then proceeded to dress the incisions with skin glue and attached the chest tube to a Pleur-Evac. The patient was then rolled supine, extubated, and transferred to the PACU in good condition. MMODL / IJN: [id number] /
--- NOTE | 2024-06-11 14:41 | PN ---
PROGRESS NOTE SUBJECTIVE: At the time of my evaluation, the patient was seen in the room 371. This is a young patient who presented with spontaneous pneumothorax and had chest tube placed. My understanding from the patient is that he has no complaints of dyspnea at this time, is using his incentive spirometer frequently. His chest tube is set to water seal. CT Surgery is following this patient and is recommending continuing to monitor with the chest tube with anticipation of removing it tomorrow morning. The patient denies fevers, chills, nausea, vomiting, or chest pain at the time of my evaluation. OBJECTIVE: GENERAL: The patient is hemodynamically stable. LABORATORY WORK: Reviewed and is normal. ASSESSMENT/PLAN: Spontaneous pneumothorax: Continue pain control, encourage incentive spirometer use. Follow up CT Surgery recommendations, anticipate removal of chest tube tomorrow with likely discharge home with PCP followup. MMODL / IJN: [id number] /
--- NOTE | 2024-06-11 14:41 | PN ---
PROGRESS NOTE I saw this patient in room 371 today. SUBJECTIVE: The patient has no new complaints at this time and was seen by CT Surgery and was noted to still have pneumothorax and chest x-ray and therefore, they decided to keep the chest tube in place. Otherwise, denies any new complaints. PHYSICAL EXAMINATION: VITAL SIGNS: The patient is afebrile, 125/75, heart rate 57, 99% on room air. GENERAL: He appears in no apparent distress. CHEST: Has symmetric chest expansion and is not using accessory muscles. LABORATORY DATA: There are no labs to review today. There are new images to review, demonstrated ongoing pneumothorax on the chest x-ray. ASSESSMENT AND PLAN: Pneumothorax. Continue chest tube to water seal today. CT Surgery recommendations are appreciated. Continue pain control. Wean oxygen as able. MMODL / IJN: [id number] /
== END 2024-05-02 16:20 | disposition home or self-care (01) | DRG 163 ==
LOC: DISRECOVER 06:35 → UNDOADMIN 05-02 16:20 → 3NCARDOBS 05-02 16:20 → UNDODISIN 05-02 16:20
PROVIDERS: ADMIT Student in an Organized Health Care Education/Training Program; ATTEND Student in an Organized Health Care Education/Training Program
PROC: 0W9B30Z Drainage of Left Pleural Cavity with Drainage Device, Percutaneous Approach (ICD-10-PCS; 2024-04-28)
PROC: 0BBG4ZZ Excision of Left Upper Lung Lobe, Percutaneous Endoscopic Approach (ICD-10-PCS; 2024-04-29)
PROC: 0B5P4ZZ Destruction of Left Pleura, Percutaneous Endoscopic Approach (ICD-10-PCS; principal; 2024-04-29 10:00)
DX: J93.83 Other pneumothorax (principal); J96.01 Acute respiratory failure with hypoxia; J43.9 Emphysema, unspecified; Z87.891 Personal history of nicotine dependence; Z87.09 Personal history of other diseases of the respiratory system; F12.90 Cannabis use, unspecified, uncomplicated
CPT/HCPCS: 71045; 71046; 71250; 86850; 86900; 86901; 88307; 93005; 94640; 96374; 96375; 99291